=== PATIENT | female | born 1965 | race Caucasian/White ===

== ENCOUNTER 2024-12-03 12:16 | Outpatient (RCR) | payer BC, SELFPAY ==
--- NOTE | 2024-12-03 13:31 | PTOPEVAL1 ---
Assessment and note entered by Chayito Tsang, PT Evaluation Information Assessment Status Evaluation Diagnosis BPPV unspecified ear ICD-10 Condition Codes (PT) Dizziness and Giddiness R42 Subjective Information Pt reports was limp, wasn't feeling well and went to the restroom and fell to the flower. States they were asking her questions and she couldn't process it. States they had to help her walk, and she went to the ER. Went to [facility] and CT wasn't working so was sent to another hospital. Did have a spinning sensation as well. CT - ruled out stroke. Meclizine seems to help, and sinus medication helps a bit but has been off and on. One in a while will bend over and have dizziness but also notes can be sitting still and will feel like is moving. States wiht pressure changes in the environment the symptoms are worse. Reports has not had to take Meclizine in ~ 2 months. States also has not had spinning but maybe 2-4 times in the 5 months since initial episode Reported Pain Level Pain Score 0: Self Report Assessment PT Clinical Summary Pt presents with complaints of vertigo. She reports symptoms increase with weather changes at times, and sinus medication will help symptoms. Has not required Meclizine in approx 2 months. Episodes of spinning she reports few of these since the initial presentation five months ago. Though reports of spinning and symptoms consistent with BPPV, her testing today does not evoke symptoms or nystagmus. Is highly possible otolith position was precarious in that it would cause symptoms, then reposition to asymptomatic location , to return to symptomatic location over the last few months. Discussed with patient putting therapy in a hold pattern, and to note if in the next month she has spinning or symptom changes and to report back to therapy. Otherwise pt case will be discharged in 30 days. Plan of Care Interventions Neuro Re-education,Therapeutic Activities,Self- Care/Home Management Other Interventions [employer] PT Services Indicated Yes Treatment Frequency and PRN up to 6 visits in the next 30 days Duration These treatments will address the objective and functional deficits as defined above. The patient will be advanced safely and appropriately in order for the patient to progress towards his/her prior level of function. Additional exercises will be introduced and as well as a comprehensive home exercise program upon discharge, if needed, ?to ensure carryover of functional gains achieved in the clinic. This treatment plan has been reviewed and agreement upon by the patient.
--- NOTE | 2024-12-03 13:31 | OPREHPOC ---
Outpatient Therapy Plan of Care This is a Multidisciplinary Plan of Care that may contain components documented by all disciplines (PT, OT, and ST.) PT Problem 1 PT Problem #1 Knowledge Deficit PT Goal 1 Goal / Goal Update Pt will be independent in HEP Pt will verbalize understanding of diagnosis and prognosis Target Visit 6 PT Problem 2 PT Problem #2 Impaired Sensation PT Goal 1 Goal / Goal Update Pt will report resolution of spinning over the past 30 days Target Visit 6
--- NOTE | 2025-01-01 08:28 | PCPTNOTE ---
Admitting Provider: Attending Provider: Marlene Rodriguez PA-C Patient:Bibi Holland Date of :1965 Patient attended evaluation and at that time her symptoms had resolved. We kept her plan open in case of flare up. She has not returned in four weeks thus we are discharging her plan on care. Should she require therapy services in the future, we would be happy to accommodate those needs.
== END 2025-01-02 14:48 | disposition home or self-care (01) ==
LOC: ANHHIPT 12:16
PROVIDERS: PCP Physician Assistant Medical; Visit Provider Physician Assistant Medical
DX: H81.10 Benign paroxysmal vertigo, unspecified ear (principal)
CPT/HCPCS: 97110; 97161